=== PATIENT | female | born 1980 | race African-American/Black ===

== ENCOUNTER 2017-11-23 05:46 | Emergency (ER) | payer SELFPAY ==
--- NOTE | 2017-11-23 06:37 | ER Document Report ---
ED General - General Chief Complaint: Arm Pain Stated Complaint: ARM PAIN Time Seen by Provider: 11/23/17 06:37 - HPI Patient complains to provider of: Bilateral arm pain Notes: 37-year-old female presents with bilateral upper back shoulder forearm pain 10/ 10 cramping in nature without radiation nothing is made the pain better or worse. 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 States she is not able to work today secondary to the intense pain she is feeling. Patient feels "knots in her bilateral trapezius muscles. Denies any other direct trauma or bony prominence pain. - Related Data Allergies/Adverse Reactions: latex Allergy (Verified 11/23/17 05:48) Past Medical History - Social History Smoking Status: Unknown if Ever Smoked Family History: None Patient has suicidal ideation: No Patient has homicidal ideation: No Renal/ Medical History: Denies: Hx Peritoneal Dialysis Review of Systems - Review of Systems Notes: REVIEW OF SYSTEMS: CONSTITUTIONAL: -fevers, -chills EENT: -eye pain, -difficulty swallowing, -nasal congestion CARDIOVASCULAR: -chest pain, -syncope. RESPIRATORY: -cough, -SOB GASTROINTESTINAL: -abdominal pain, -nausea, -vomiting, -diarrhea GENITOURINARY: -dysuria, -hematuria MUSCULOSKELETAL: +back pain, +neck pain SKIN: -rash or skin lesions. HEMATOLOGIC: -easy bruising or bleeding. LYMPHATIC: -swollen, enlarged glands. NEUROLOGICAL: -altered mental status or loss of consciousness, -headache, - neurologic symptoms PSYCHIATRIC: -anxiety, -depression. ALL OTHER SYSTEMS REVIEWED AND NEGATIVE. Physical Exam - Vital signs Vitals: Temp Pulse Resp BP Pulse Ox 97.4 F 73 18 118/73 100 11/23/17 05:54 11/23/17 05:54 11/23/17 05:54 11/23/17 05:54 11/23/17 05:54 - Notes Notes: PHYSICAL EXAMINATION: GENERAL: Well-appearing, well-nourished and in no acute distress. HEAD: Atraumatic, normocephalic. EYES: Pupils equal round and reactive to light, extraocular movements intact, sclera anicteric, conjunctiva are normal. ENT: nares patent, oropharynx clear without exudates. Moist mucous membranes. NECK: Normal range of motion, supple without lymphadenopathy LUNGS: Breath sounds clear to auscultation bilaterally and equal. No wheezes rales or rhonchi. HEART: Regular rate and rhythm without murmurs ABDOMEN: Soft, nontender, normoactive bowel sounds. No guarding, no rebound. No masses appreciated. EXTREMITIES: Normal range of motion, no deformity NEUROLOGICAL: Cranial nerves grossly intact. Normal speech, normal gait. Normal sensory and motor exams. PSYCH: Normal mood, normal affect. SKIN: Warm, Dry, normal turgor, no rashes or lesions noted. Course - Re-evaluation Re-evalutation: 11/23/17 06:54 Unfortunate female presents with bilateral upper back muscle sprain from overuse syndrome. Will be given oral steroids, acetaminophen, ibuprofen the department given prescription for oral opioid therapy. Patient recommended drink plenty of water rest her arms if possible Follow-up with PCP strict return precautions - Vital Signs Vital signs: Temp Pulse Resp BP Pulse Ox 97.4 F 73 18 118/73 100 11/23/17 05:54 11/23/17 05:54 11/23/17 05:54 11/23/17 05:54 11/23/17 05:54 Discharge - Discharge Clinical Impression: Overuse syndrome Condition: Stable Disposition: HOME, SELF-CARE Instructions: Muscle Strain ([facility]) Additional Instructions: See your PCP EVONNE
[2017-11-23] MEDS ORDERED: ACETAMINOPHEN 325 MG TABLET PO ONE (06:50)
[2017-11-23] MEDS ORDERED: PREDNISONE 20 MG TABLET PO ONE (06:50)
[2017-11-23] MEDS ORDERED: IBUPROFEN 600 MG TABLET PO ONE (06:51)
[2017-11-23 07:04] VITALS: BP 113/71
== END 2017-11-23 07:04 | disposition home or self-care (01) ==
LOC: ER 05:46
DX: M70.88 Other soft tissue disorders related to use, overuse and pressure other site (principal); M79.602 Pain in left arm; M79.601 Pain in right arm; Y93.89 Activity, other specified; Z91.040 Latex allergy status
CPT/HCPCS: 99283; J7512